=== PATIENT | male | born 1980 | race Caucasian/White ===

== ENCOUNTER 2017-10-03 07:43 | Emergency (ER) | payer OTHER ==
--- NOTE | 2017-10-03 08:20 | ER Document Report ---
ED Extremity Problem, Lower <NOBLE CHIU - Last Filed: 10/03/17 09:39> - General Mode of Arrival: Ambulatory Information source: Patient <JOSE ETIENNE - Last Filed: 10/03/17 13:49> - General Chief Complaint: Leg Pain Stated Complaint: RIGHT LEG PAIN Time Seen by Provider: 10/03/17 08:05 Notes: Patient is a 37-year-old male who presents to the emergency department today with complaints of right hernandez pain for the last week and a half. Patient states he plays ultimate frisbee frequently and he twists and rotates on his feet and he thinks he could have injured it during that. Patient denies any acute injury that he can remember. Patient states it sometimes hurts when he walks. (RENE ETIENNEON) - Related Data Allergies/Adverse Reactions: No Known Allergies Allergy (Unverified 10/03/17 08:01) Past Medical History - General Information source: Patient - Social History Smoking Status: Never Smoker Cigarette use (# per day): No Frequency of alcohol use: None Drug Abuse: None Lives with: Family Family History: Reviewed & Not Pertinent - Medical History Medical History: Negative Surgical Hx: Negative <LOWELLJOSE - Last Filed: 10/03/17 13:49> Review of Systems - Review of Systems Constitutional: No symptoms reported EENT: No symptoms reported Cardiovascular: No symptoms reported Respiratory: No symptoms reported Gastrointestinal: No symptoms reported Genitourinary: No symptoms reported Male Genitourinary: No symptoms reported Musculoskeletal: See HPI, Other - right hernandez pain Skin: No symptoms reported Hematologic/Lymphatic: No symptoms reported Neurological/Psychological: No symptoms reported -: Yes All other systems reviewed and negative <JOSE ETIENNE - Last Filed: 10/03/17 13:49> Physical Exam <NOBLE CHIU - Last Filed: 10/03/17 09:39> <JOSE ETIENNE - Last Filed: 10/03/17 13:49> - Vital signs Vitals: Temp Pulse Resp BP Pulse Ox 97.8 F 53 L 16 131/75 H 99 10/03/17 07:47 10/03/17 07:47 10/03/17 07:47 10/03/17 07:47 10/03/17 07:47 - Notes Notes: Physical Exam: General: Alert, appears well. HEENT: Normocephalic. Atraumatic. PERRL. Extraocular movements intact. Oropharynx clear. Neck: Supple. Non-tender. Respiratory: No respiratory distress. Clear and equal breath sounds bilaterally. Cardiovascular: Regular rate and rhythm. Abdominal: Normal Inspection. Non-tender. No distension. Normal Bowel Sounds. Back: Non-tender. No deformity or step off. Extremities: Moves all four extremities. Upper extremities: Normal inspection. Normal ROM. Lower extremities: Normal inspection. No edema. Normal ROM. Neurological: Normal cognition. AAOx4. Normal speech. Psychological: Normal affect. Normal Mood. Skin: Right hernandez tenderness with palpation. No erythema, induration, or fluctuance. (JOSE ETIENNE) Course - Diagnostic Test Radiology reviewed: Image reviewed - Possible stress fx per rads (discussion with them) <NOBLE CHIU - Last Filed: 10/03/17 09:39> <JOSE ETIENNE - Last Filed: 10/03/17 13:49> - Re-evaluation Re-evalutation: 10/03/17 09:24 X-ray shows possible stress fracture per radiologist discussion after she called me. I discussed this with the patient and need for anti-inflammatories rest ice elevation. He is to limit his activity until he is asymptomatic and is seen by orthopedics patient's pain begins at the top of foot and extends up into hernandez suggestive of also tendon strain. 10/03/17 09:39 (NOBLE CHIU) - Vital Signs Vital signs: Temp Pulse Resp BP Pulse Ox 98.3 F 64 18 140/79 H 98 10/03/17 09:41 10/03/17 09:41 10/03/17 09:41 10/03/17 09:41 10/03/17 09:41 Discharge <NOBLE CHIU - Last Filed: 10/03/17 09:39> <JOSE ETIENNE - Last Filed: 10/03/17 13:49> - Discharge Clinical Impression: Strain of tendon Stress fracture Qualifiers: Encounter type: initial encounter Stress fracture site: fibula Laterality: right Qualified Code(s): M84.363A - Stress fracture, right fibula, initial encounter for fracture Disposition: HOME, SELF-CARE Instructions: Tendon Strain ([facility]) Additional Instructions: Please use ice 2-3 times a day fr 10 to 20 minutes. Limit exercise until seen by orthopedist. Prescriptions: Naproxen 500 mg PO BID #20 tablet Referrals: BELEM PUTNAM MD [ACTIVE STAFF] - Follow up in 3-5 days (Follow up as as soon as possible for evaluation.) Scribe Documentation - Scribe Written by Scribe:: Josh Kilgore, 10/03/2017 0149 acting as scribe for :: Long <JOSE ETIENNE - Last Filed: 10/03/17 13:49>
--- NOTE | 2017-10-03 09:41 | RADIOLOGY REPORT (SQ) ---
EXAM DESCRIPTION: TIBIA FIBULA RIGHT COMPLETED DATE/TIME: 10/03/2017 8:48 am REASON FOR STUDY: hernandez pain COMPARISON: None. NUMBER OF VIEWS: Two views. TECHNIQUE: Two radiographic images acquired of the right tibia and fibula to include the knee and an kle in at least one projection. LIMITATIONS: None. FINDINGS: MINERALIZATION: Normal. BONES: No acute fracture or dislocation. 2 cm focus of cortical thickening along the posteromedial a spect, right tibial diaphysis. This could represent a stress fracture. Ossified fibroma could mimic this appearance. Consider bone scan for followup. SOFT TISSUES: No obvious swelling or foreign body. OTHER: No other significant finding. IMPRESSION: No acute fracture or malalignment. 2 cm focus of cortical thickening and bony sclerosis in the mid 3rd right tibia. This could represen t a stress fracture. Benign ossified fibroma could mimic this appearance. Consider bone scan for fo llowup. Findings discussed with Dr. Holly TECHNICAL DOCUMENTATION: JOB ID: [id number] [facility]- All Rights Reserved Reading location - IP/workstation name: [email or web address]
[2017-10-03 09:43] VITALS: BP 140/79
== END 2017-10-03 09:47 | disposition home or self-care (01) ==
LOC: ER 07:43
DX: M84.363A Stress fracture, right fibula, initial encounter for fracture (principal); T14.8XXA Other injury of unspecified body region, initial encounter; X58.XXXA Exposure to other specified factors, initial encounter; M79.661 Pain in right lower leg
CPT/HCPCS: 99283

== ENCOUNTER 2017-11-06 19:50 | Emergency (ER) | payer OTHER ==
[2017-11-06 20:09] VITALS: BP 112/91
[2017-11-06] MEDS ORDERED: DEXAMETHASONE SOD PHOS INJ 10 MG/1 ML VIAL IM ONE (21:16)
[2017-11-06] MEDS ORDERED: KETOROLAC TROMETHAMINE 60 MG/2 ML SDV IM ONE (21:27)
[2017-11-06] MEDS ORDERED: METHOCARBAMOL 500 MG TABLET PO ONE (21:27)
[2017-11-06] MEDS ORDERED: OXYCODONE-ACETAMINOPHEN 5-325 MG TABLET PO ONE (21:27)
--- NOTE | 2017-11-06 21:30 | ER Document Report ---
ED Neck/Back Problem - General Chief Complaint: Neck Pain < 24hrs old Stated Complaint: NECK PAIN Time Seen by Provider: 11/06/17 20:58 Mode of Arrival: Ambulatory Information source: Patient Notes: 37-year-old male presents to ED for complaint of pain to his left neck left back and down his left arm. He states he has a history of bulging disc in his cervical spine. He states that he was recently transferred with his who is in the and has not yet seen his primary care doctor in this area. He states he does not have a back specialist in this area. He states he was sleeping a last night and moved wrong around 3:00 and has had increasing pain since then. He states he was at his work today but could not work and could not even sit at his desk so he came to the emergency room tonight. TRAVEL OUTSIDE OF THE [place] IN LAST 30 DAYS: No - HPI Patient complains to provider of: Pain, Neck, Upper back Onset: Other - Chronic pain worse after moving long during his sleep last night Where: Home, Indoors Onset: Chronic Timing: Worse Quality of pain: Sharp Severity: Severe Pain Level: 5 Context: Other - Has a chronic history of pain in his neck but states it is worse after turning wrong last night in his sleep Recent injury: No Associated symptoms: Like prior neck/back pain, Radiation to arm - Radiates to upper back and shoulder Exacerbated by: Movement of neck, Movement of trunk, Sitting position Relieved by: Nothing Similar symptoms previously: Yes Recently seen / treated by doctor: No - Related Data Allergies/Adverse Reactions: No Known Allergies Allergy (Unverified 10/03/17 08:01) Past Medical History - General Information source: Patient - Social History Smoking Status: Never Smoker Cigarette use (# per day): No Chew tobacco use (# tins/day): No Smoking Education Provided: No Frequency of alcohol use: None Drug Abuse: None Lives with: Family Family History: Reviewed & Not Pertinent Patient has suicidal ideation: No Patient has homicidal ideation: No - Past Medical History Cardiac Medical History: Reports: None Pulmonary Medical History: Reports: None EENT Medical History: Reports: None Neurological Medical History: Reports: None Endocrine Medical History: Reports: None Renal/ Medical History: Reports: None Malignancy Medical History: Reports None GI Medical History: Reports: None Musculoskeletal Medical History: Reports Hx Arthritis, Reports Hx Musculoskeletal Deformity - Bulging disc; C3-4, C4-5, C5-6, and C6-7 MRI 2017 no cord impingement, Reports Hx Musculoskeletal Trauma Skin Medical History: Reports None Psychiatric Medical History: Reports: None Traumatic Medical History: Reports: Hx Fractures - Right foot Infectious Medical History: Reports: None Surgical Hx: Negative Past Surgical History: Reports: None - Immunizations Immunizations up to date: Yes Review of Systems - Review of Systems Constitutional: No symptoms reported EENT: No symptoms reported Cardiovascular: No symptoms reported Respiratory: No symptoms reported Gastrointestinal: No symptoms reported Genitourinary: No symptoms reported Male Genitourinary: No symptoms reported Musculoskeletal: Back pain, Muscle pain, Muscle stiffness, Neck pain Skin: No symptoms reported Hematologic/Lymphatic: No symptoms reported Neurological/Psychological: No symptoms reported -: Yes All other systems reviewed and negative Physical Exam - Vital signs Vitals: Temp Pulse Resp BP Pulse Ox 98.0 F 72 18 112/91 H 97 11/06/17 20:08 11/06/17 20:08 11/06/17 20:08 11/06/17 20:08 11/06/17 20:08 Interpretation: Normal - General General appearance: Appears well, Alert - HEENT Head: Normocephalic, Atraumatic Eyes: Normal Pupils: PERRL - Respiratory Respiratory status: No respiratory distress Chest status: Nontender Breath sounds: Normal Chest palpation: Normal - Cardiovascular Rhythm: Regular Heart sounds: Normal auscultation Murmur: No - Abdominal Inspection: Normal Distension: No distension Bowel sounds: Normal Tenderness: Nontender Organomegaly: No organomegaly - Back Back: Normal, Tender, Vertebra tenderness - Cervical and upper thoracic tenderness. No: Deformity/step-off, CVA tenderness, Scars, Scoliosis - Extremities General upper extremity: Normal inspection, Normal color, Normal ROM, Normal temperature General lower extremity: Normal inspection, Nontender, Normal color, Normal ROM , Normal temperature, Normal weight bearing. No: Adam's sign Shoulder: Tender. No: Limited ROM - Pains of pain with range of motion would not move arm for me but when Dr. Busby came over he had full range of motion with a strength5/5 Arm: Tender Elbow: Tender. No: Limited ROM - Pains of pain with range of motion would not move arm for me but when Dr. Busby came over he had full range of motion with a strength5/5 Forearm: Tender, Other - Pains of pain with range of motion would not move arm for me but when Dr. Busby came over he had full range of motion with a strength5/ 5 - Neurological Neuro grossly intact: Yes Cognition: Normal Orientation: AAOx4 [place]ovany Coma Scale Eye Opening: Spontaneous [place] Coma Scale Verbal: Oriented [place] Coma Scale Motor: Obeys Commands [place] Coma Scale Total: 15 Speech: Normal Motor strength normal: LUE, RUE, LLE, RLE Sensory: Normal - Psychological Associated symptoms: Normal affect, Normal mood - Skin Skin Temperature: Warm Skin Moisture: Dry Skin Color: Normal Course - Re-evaluation Re-evalutation: 11/06/17 21:[address] Busby for the patient's complaints and assessment. Patient would not allow me to move the arms or test strength on the left arm. Dr. Busby came over and assessed the patient patient had 5 out of 5 strength on the left which is the side that he is stating he cannot move. He does have pain when he moves. Patient was treated with Toradol, Decadron, Robaxin, and Percocet while in the emergency room. He was discharged home with prescription for Robaxin and Percocet. Patient is to follow-up with his primary care doctor and get a consult to a back specialist. Will give him the name and number Geronimo Brenner. - Vital Signs Vital signs: Temp Pulse Resp BP Pulse Ox 98.0 F 72 18 112/91 H 97 11/06/17 20:08 11/06/17 20:08 11/06/17 20:08 11/06/17 20:08 11/06/17 20:08 Discharge - Discharge Clinical Impression: neck pain exacerbation Condition: Stable Disposition: HOME, SELF-CARE Additional Instructions: MUSCLE STRAIN: You have strained a muscle -- torn the fibers within the muscle. This often occurs with strenuous exertion, or during an injury that suddenly stretches the muscle. The seriousness of a strain varies. Some strains heal within days, others cause problems for months. X-rays cannot show a muscle strain. X-rays are taken only if symptoms suggest that a fracture could be present. The usual treatment of a muscle strain is rest and ice packs. Sometimes, a sling, splint, or crutches may be necessary to rest the muscle. The muscle can be used again once pain subsides. Severe strains require a special exercise and stretching program to prevent permanent stiffness and disability. Your doctor will advise you if this will be necessary. Call the doctor immediately if pain or swelling becomes severe, or if numbness or discoloration develop. USE OF TYLENOL (ACETAMINOPHEN): Acetaminophen may be taken for pain relief or fever control. It's much safer than aspirin, offering a wider range of "safe" dosages. It is safe during . Some brand names are Tylenol, Panadol, Datril, Anacin 3, Tempra, and Liquiprin. Acetaminophen can be repeated every four hours. The following are maximum recommended dosages: WEIGHT Dose Drops Elixir Chewable( 80mg) (LBS.) drprs=droppers tsp=teaspoon 6 40 mg 0.4 ml (1/2) 6-11 80 mg 0.8 ml (full) tsp 1 tab 12-16 120 mg 1 1/2 drprs 3/4 tsp 1 1/2 tabs 17-23 160 mg 2 drprs 1 tsp 2 tabs 24-30 240 mg 3 drprs 1 1/2 tsp 3 tabs 30-35 320 mg 2 tsp 4 tabs 36-41 360 mg 2 1/4 tsp 4 1/2 tabs 42-47 400 mg 2 1/2 tsp 5 tabs 48-53 480 mg 3 tsp 6 tabs 54-59 520 mg 3 1/4 tsp 6 1/2 tabs 60-64 560 mg 3 1/2 tsp 7 tabs 65-70 600 mg 3 3/4 tsp 7 1/2 tabs 71-76 640 mg 4 tsp 8 tabs 77-82 720 mg 4 1/2 tsp 9 tabs 83-88 800 mg 5 tsp 10 tabs >89 pounds or adults 650 mg to 900 mg Acetaminophen can be repeated every four hours. Maximum dose not to exceed 4000 mg a day. These maximum recommended dosages are slightly higher than the dosages written on the product container, but these dosages are very safe and below the toxic dosage for acetaminophen. ICE PACKS: Apply ice packs frequently against the painful area. Many different schedules are recommended, such as "20 minutes on, 20 minutes off" or "one hour ice, two hours rest." If you need to work, you may need to go longer between ice treatments. You should plan to have the area ice packed AT LEAST one fourth of the time. The ice should be applied over the wrap, tape, or splint, or over a layer of cloth -- not directly against the skin. Some ice bags have a built-in cloth and can be put directly on the skin. WARM PACKS: After approximately two days, apply gentle heat (such as a heating pad or hot water bottle) for about 20 to 30 minutes about every two hours -- at least four times daily. Warmth and elevation will help you make a more rapid recovery , and will ease the pain considerably. Do not use HOT heat, and never apply heat for longer than 30 minutes. The continuous heat can invisibly damage skin and muscles -- even when no burn is seen on the surface. Damaged muscles can make you MORE sore. MUSCLE RELAXERS: Muscle relaxing medications are usually prescribed for acute muscle spasm or injury to the neck and back. They are often combined with antiinflammatory pain medication for increased relief. You may stop the muscle relaxer when the pain and stiffness have improved. Start the medication again if spasms recur. Muscle relaxers may cause drowsiness, especially with the first dose. Do not operate machinery or drive while under the effects of the medication. Most muscle relaxers last up to 24 hours. Do not combine the medication with alcohol. ORAL NARCOTIC MEDICATION: You have been given a prescription for pain control. This medication is a narcotic. It's best taken with food, as nausea can result if taken on an empty stomach. Don't operate machinery or drive within six hours of taking this medication. Do not combine this medicine with alcohol, or with any medication which can cause sedation (such as cold tablets or sleeping pills) unless you get permission from the physician. Narcotics tend to cause constipation. If possible, drink plenty of fluids and eat a diet high in fiber and fruits. FOLLOW-UP CARE: If you have been referred to a physician for follow-up care, call the physician s office for an appointment as you were instructed or within the next two days. If you experience worsening or a significant change in your symptoms, notify the physician immediately or return to the Emergency Department at any time for re-evaluation. Marcus Morales [address] [place] [address] [place] [address] * [address] Prince Sidhu [address] [place] [id number] * 3 Gaudencio Healye [address] [address] * 4 Darrian Ontiveros [address] [address] Prescriptions: Oxycodone HCl/Acetaminophen [Percocet 5-325 mg Tablet] 1 tab PO Q6HP PRN #10 tab PRN Reason: Methocarbamol [Robaxin 500 mg Tablet] 500 mg PO BID #10 tablet Referrals: EDITH TEJEDA MD [Primary Care Provider] - Follow up as needed GERONIMO BRENNER MD [ACTIVE STAFF] - Follow up as needed
== END 2017-11-06 22:20 | disposition home or self-care (01) ==
LOC: ER 19:50
DX: M54.2 Cervicalgia (principal); M54.9 Dorsalgia, unspecified
CPT/HCPCS: 99283; J1885; J1100

== ENCOUNTER 2018-03-29 03:08 | Emergency (ER) | payer OTHER ==
[2018-03-29] MEDS ORDERED: ONDANSETRON 4 MG TAB.RAPDIS PO ONE (03:31)
[2018-03-29] MEDS ORDERED: OXYCODONE-ACETAMINOPHEN 5-325 MG TABLET PO ONE (03:31)
--- NOTE | 2018-03-29 03:32 | ER Document Report ---
ED Fall - General Chief Complaint: Fall Injury Stated Complaint: FALL, NECK PAIN Time Seen by Provider: 03/29/18 03:25 Notes: Patient is a 38-year-old male that comes to the emergency department for chief complaint of neck pain and left shoulder pain. He states he was wrestling with his son, he slid off of there regular size bed and landed on his head, he states he had pain in his neck and shoulder when this happened at 6 PM and now symptoms have significantly worsened to the point that he cannot get comfortable and can barely move. He denies going numb in his arms or legs, he denies incontinence, loss of consciousness, vomiting. He denies any alcohol, he takes no daily medications, he denies any medical history. TRAVEL OUTSIDE OF THE [place] IN LAST 30 DAYS: No - Related data Allergies/Adverse Reactions: No Known Allergies Allergy (Unverified 10/03/17 08:01) Past Medical History - General Information source: Patient - Social History Smoking Status: Never Smoker Frequency of alcohol use: Occasional Drug Abuse: None Lives with: Family Family History: Reviewed & Not Pertinent Renal/ Medical History: Denies: Hx Peritoneal Dialysis Musculoskeletal Medical History: Reports Hx Arthritis, Reports Hx Musculoskeletal Deformity - Bulging disc; C3-4, C4-5, C5-6, and C6-7 MRI 2017 no cord impingement, Reports Hx Musculoskeletal Trauma Traumatic Medical History: Reports: Hx Fractures - Right foot - Immunizations Immunizations up to date: Yes Review of Systems - Review of Systems Constitutional: No symptoms reported EENT: No symptoms reported Cardiovascular: No symptoms reported Respiratory: No symptoms reported Gastrointestinal: No symptoms reported Genitourinary: No symptoms reported Male Genitourinary: No symptoms reported Musculoskeletal: See HPI Skin: No symptoms reported Hematologic/Lymphatic: No symptoms reported Neurological/Psychological: No symptoms reported Physical Exam - Vital signs Vitals: Temp Pulse Resp BP Pulse Ox 97.4 F 62 15 118/70 96 03/29/18 03:16 03/29/18 03:16 03/29/18 03:16 03/29/18 03:16 03/29/18 03:16 - Notes Notes: GENERAL: Alert, interacts well. Moves stiffly and appears uncomfortable. HEAD: Normocephalic, atraumatic. EYES: Pupils equal, round, and reactive to light. Extraocular movements intact. ENT: Oral mucosa moist, tongue midline. Oropharynx unremarkable. Airway patent. Nares patent, no nasal septal hematoma, TM's intact. NECK: Full range of motion. Supple. Trachea midline. LUNGS: Clear to auscultation bilaterally, no wheezes, rales, or rhonchi. No respiratory distress. HEART: Regular rate and rhythm. No murmur ABDOMEN: Soft, non-tender. Non-distended. Bowel sounds present in all 4 quadrants. GENITOURINARY: Deferred EXTREMITIES: Moves all 4 extremities spontaneously. No edema, normal radial and dorsalis pedis pulses bilaterally. No cyanosis. BACK: Tender over the left paracervical and trapezius muscles. Limited range of motion of the neck laterally. No overt midline tenderness of the neck. No signs of trauma over the back, back examination is normal otherwise, no saddle anesthesia, normal upper ex and lower extremity range of motion except for the left shoulder because of the pain and spasm, normal distal neurovascular exam throughout. NEUROLOGICAL: Alert and oriented x3. Normal speech. [cranial nerves II through XII grossly intact]. PSYCH: Normal affect, normal mood. SKIN: Warm, dry, normal turgor. No rashes or lesions noted. Course - Re-evaluation Re-evalutation: Based on patient's injury and pain CAT scan of the neck was performed, x-ray of the left shoulder was performed. These are both negative. Patient does not have any numbness, he has had developing symptoms that started about 45 minutes after initial injury per patient after he elaborates further on reevaluation. He does not have any neurological deficits on my value. He does have significant muscle spasm developing over the left trapezius and paracervical musculature but not advanced to torticollis. Patient treated accordingly. He will be treated at home for this as well, I discussed expectations, follow-up, and return precautions in detail with patient and . They state understanding and agreement. - Vital Signs Vital signs: Temp Pulse Resp BP Pulse Ox 98.1 F 59 L 16 114/64 95 03/29/18 04:35 03/29/18 04:35 03/29/18 04:35 03/29/18 04:35 03/29/18 04:35 Discharge - Discharge Clinical Impression: Neck pain Fall Qualifiers: Encounter type: initial encounter Qualified Code(s): W19.XXXA - Unspecified fall, initial encounter Head injury Qualifiers: Encounter type: initial encounter Qualified Code(s): S09.90XA - Unspecified injury of head, initial encounter Left shoulder pain Qualifiers: Chronicity: acute Qualified Code(s): M25.512 - Pain in left shoulder Condition: Stable Disposition: HOME, SELF-CARE Additional Instructions: The imaging shows no concerning abnormality. Your injury and your examination is consistent with strain of the paracervical and trapezius muscles on the left side and muscle spasms. Apply heat to the area, take diazepam as prescribed as muscle relaxant, take ibuprofen 600 mg every 6 hours. Rest. You will progressively become more sore for about 2 days and then this should start to improve. Follow-up with primary care. Return if you worsen including numbness, inability to control your bowels, inability to urinate, or any other concerning symptoms. See head injury precautions listed below. Head Injury Precautions At this point, there is no evidence that your head injury is serious. Observation is necessary, however. Limit activity for the first 24 hours. Bed rest is best. During the first 24 hours, check to see approximately every two to three hours that the patient is easily arousable, responds normally, and can perform common tasks such as walking without difficulty. Contact your doctor or go to the hospital if any of the following things occur: Persistent vomiting, difficulty in arousing the patient, worsening or continued headache, or failure to improve as expected. Head injuries can cause symptoms that persist for a few days or even a few weeks. Prescriptions: Diazepam [Valium 5 mg Tablet] 1 - 2 tab PO TID PRN #10 tablet PRN Reason: Referrals: EDITH TEJEDA MD [Primary Care Provider] - Follow up as needed
--- NOTE | 2018-03-29 04:03 | RADIOLOGY REPORT (SQ) ---
EXAM DESCRIPTION: CT CERVICAL SPINE WITHOUT IV CONTRAST COMPLETED DATE/TME: 03/29/2018 03:31 CLINICAL HISTORY: 38 years, Male, fall on head, neck pain COMPARISON: None. TECHNIQUE: 260 Images stored on PACS. All CT scanners at this facility use dose modulation, iterative reconstruction, and/or weight based dosing when appropriate to reduce radiation dose to as low as reasonably achievable (ALARA). [facility]: Dose Right [facility]: CareDose [facility]: Dose Right [facility]: Teradose 4D [facility]: WayConnected LIMITATIONS: None. FINDINGS: Evaluation of spinal canal contents limited due to CT technique. However, vertebral body height and alignment is preserved. Negative for fracture/compression deformity or subluxation. Minor degenerative change at C4-5 and C5-6 levels. Surrounding soft tissues are unremarkable. IMPRESSION: No acute osseous abnormality TECHNICAL DOCUMENTATION: Quality ID # [id number]: Final reports with documentation of one or more dose reduction techniques (e.g., Automated exposure control, adjustment of the mA and/or kV according to patient size, use of iterative reconstruction technique) copyright 2011 [employer]- All Rights Reserved
--- NOTE | 2018-03-29 04:09 | RADIOLOGY REPORT (SQ) ---
EXAM DESCRIPTION: XR SHOULDER 2 OR MORE VIEWS COMPLETED DATE/TME: 03/29/2018 03:31 CLINICAL HISTORY: 38 years, Male, fall on head, shoulder pain COMPARISON: None. NUMBER OF VIEWS: 3 TECHNIQUE: 3 view left shoulder LIMITATIONS: None. FINDINGS: Negative for acute fracture or dislocation. Soft tissues are unremarkable IMPRESSION: Negative exam copyright 2010 [employer]- All Rights Reserved
[2018-03-29] MEDS ORDERED: DIAZEPAM INJ 10 MG/2 ML DISP.SYRIN IM ONE (04:27)
[2018-03-29 04:37] VITALS: BP 114/64
== END 2018-03-29 04:55 | disposition home or self-care (01) ==
LOC: ER 03:08
DX: S09.90XA Unspecified injury of head, initial encounter (principal); M54.2 Cervicalgia; M25.512 Pain in left shoulder; M62.830 Muscle spasm of back; W06.XXXA Fall from bed, initial encounter; Y93.72 Activity, wrestling
CPT/HCPCS: 99284; 96372; 73030; 72125; L0120; J3360; S0119

== ENCOUNTER 2018-04-24 11:13 | Emergency (ER) | payer OTHER | END 2018-04-24 12:00 | disposition left against medical advice (07) | LOC: ER 11:13 | DX: Z53.21 Procedure and treatment not carried out due to patient leaving prior to being seen by health care provider (principal) ==